=== PATIENT | male | born 1955 | race Caucasian/White ===

== ENCOUNTER → 2017-07-29 07:34 | Outpatient (CLI) | payer OTHER, SELFPAY ==
--- NOTE | 2017-07-29 07:42 | US_ITS ---
US abdomen complete HISTORY: ITS.REASON: PERIUMBILICAL ABD PAIN ORDERING PHYSICIAN: Gomez Garcia MD PATIENT AGE: 61 years COMPARISON: None FINDINGS: PANCREAS:Unremarkable. No obvious mass or abnormal fluid collection. No ductal dilatation LIVER:Fatty liver infiltration. No focal liver lesion or biliary dilatation. There is appropriate direction of blood flow within a nondilated portal vein RIGHT KIDNEY:Unremarkable. Normal size and echogenicity. No hydronephrosis LEFT KIDNEY:Unremarkable. No hydronephrosis. Normal size and echogenicity. GALLBLADDER:No gallstones, gallbladder wall thickening, pericholecystic fluid, or biliary dilatation. AORTA:The aorta is poorly visualized. There may be some minimal dilatation of the mid aspect of the abdominal aorta. CT may better evaluate. SPLEEN:Mild splenomegaly at 14 cm ASCITES:None demonstrated. Ultrasound was obtained of the bulge in the mid abdominal region. There may be an abdominal wall hernia at this area however, this is not adequately demonstrated by ultrasound. Consider abdomen CT for more thorough evaluation IMPRESSION: 1. Fatty liver. 2. Bulging in the mid abdominal region which could be related to abdominal wall hernia. This however is not confirmed by ultrasound and may be better seen. 3. Minimal dilatation of the mid abdominal aorta also not well seen and may also be better demonstrated with CT scan. IMPRESSION:
== END ==
PROVIDERS: PCP Family Medicine; Visit Provider Family Medicine
DX: R10.33 Periumbilical pain (principal)
CPT/HCPCS: 76700

== ENCOUNTER → 2017-08-11 07:34 | Outpatient (CLI) | payer SELFPAY ==
--- NOTE | 2017-08-11 07:36 | CT_ITS ---
CT abdomen pelvis wo con CLINICAL INDICATION: Periumbilical pain, possible abdominal wall hernia. Abnormal ultrasound suggesting small hernia. ITS.REASON: ABD PAIN, ABN ABD US ORDERING PHYSICIAN: Gomez Garcia MD PATIENT AGE: 61 years COMPARISON: Ultrasound of 07/29/[address] scan 09 13 11. TECHNIQUE: Axial images obtained with sagittal and coronal reformats. PROCEDURE: Oral Contrast: None IV Contrast: None . FINDINGS: A lung bases are clear. There is some mild coronary artery calcification. The liver, gallbladder, spleen, adrenal glands, and pancreas are unremarkable. There is infiltration of the central mesenteric fat scattered small mesenteric lymph nodes in this region retroperitoneal adenopathy is also present with nodes in the left para-aortic region measuring up to 4.2 x 2.5 cm. Left para-aortic lymph nodes are present extending to the level of the aortic bifurcation No evidence of appendicitis or diverticulitis. No intestinal obstruction or free air. No pelvic mass. No inguinal adenopathy. There is some minimal stranding of the at and anterior to the left psoas muscle extending into the iliopsoas region of the pelvis. No abdominal wall hernia is evident. No acute bony anomalies. IMPRESSION: 1. Moderate wedge peritoneal adenopathy raising the suspicion of lymphoma or metastatic disease. 2. There is some infiltration of the mesenteric fat centrally with scattered small lymph nodes in the mesentery's. This is nonspecific. Differential diagnosis would include lymphoma, reactive adenopathy, or mesenteric adenitis. Would consider neck and chest CT with contrast to look for other areas of adenopathy and possible safe portal for fine-needle aspiration if clinically desired
== END ==
PROVIDERS: PCP Family Medicine; Visit Provider Family Medicine
DX: R10.33 Periumbilical pain (principal); R93.5 Abnormal findings on diagnostic imaging of other abdominal regions, including retroperitoneum
CPT/HCPCS: 74176

== ENCOUNTER → 2017-10-06 07:33 | Outpatient (CLI) | payer OTHER, SELFPAY ==
[2017-10-06 08:04] LABS: Basophils % 0.4 % (0.1-2.0); Eosinophils # 0.2 K/mm3 (0.0-0.4); Eosinophils % 3.5 % (0.1-12.0); Hematocrit 41.4 % (42.0-52.0); Hemoglobin 13.5 g/dL (14.1-18.0); Lymphocytes # 1.1 K/mm3 (0.7-4.5); Lymphocytes % 21.1 K/mm3 (10-50); Mean Corpuscular HGB Conc 32.6 g/dL (31.8-35.4); Mean Corpuscular Hemoglobin 28.3 pg (27.0-31.2); Mean Corpuscular Volume 86.8 fl (80-94); Mean Platelet Volume 7.4 fl (7.4-10.4); Monocytes # 0.4 K/mm3 (0.1-1.0); Monocytes % 6.7 % (1.7-9.3); Neutrophils # 3.6 K/mm3 (1.8-7.8); Neutrophils % 68.3 % (37.0-80.0); Platelet Count 159 K/mm3 (142-424); Red Blood Count 4.77 M/mm3 (4.60-6.20); Red Cell Distribution Width 13.6 % (11.5-17.5); White Blood Count 5.2 K/mm3 (4.8-10.8)
[2017-10-06 08:10] LABS: Activated Partial Thrombo Time 26.9 seconds (23.6-34.0); INR 1.01 (0.9-1.1); Prothrombin Time 10.9 seconds (9.4-11.8)
[2017-10-06 10:39] LABS: Blood Urea Nitrogen 20 mg/dL (7-18); Creatinine,Serum 0.99 mg/dL (0.70-1.30); Estimated Glomerular Filt Rate 76 ml/min (>60); GFR (African American) 92 ML/MIN (>60)
== END ==
PROVIDERS: Visit Provider Internal Medicine
DX: Z01.818 Encounter for other preprocedural examination (principal)
CPT/HCPCS: 36415; 82565; 84520; 85025; 85610; 85730

== ENCOUNTER → 2017-10-07 12:31 | Outpatient (CLI) | payer OTHER, SELFPAY ==
--- NOTE | 2017-10-07 12:36 | CT_ITS ---
CT biopsy guided needle, CT abdomen wo con HISTORY: ITS.REASON: RETROPERITONEAL NODES ORDERING PHYSICIAN: Jamie Segura MD PATIENT AGE: 62 years COMPARISON: None The abdomen without contrast biopsy CT scan performed to confirm the presence of the retroperitoneal lymph nodes and for biopsy planning.] No adenopathy once again noted with a large successful noted in the left retroperitoneal region measuring 3.3 x 2.7 cm. Small nodes are present also within the central mesenteric axis with a bora mesenteric appearance. TECHNIQUE: Following obtaining informed consent, using aseptic technique and local anesthesia with buffered lidocaine, fine-needle aspiration was performed of the retroperitoneal lymph nodes in the left aspect of the retroperitoneum as previously described. 3 passes were made into the nodule with a 25-gauge needle. Specimen was given to cytology. Specimen was confirmed by cytology on site at the time of the biopsy. The patient tolerated the procedure well without evidence of immediate complications and left the ultrasound suite in stable condition. CYTOLOGY: Suspicious for B-cell lymphoma. Please see cytology report IMPRESSION: Uneventful CT-guided fine-needle aspiration of left retroperitoneal lymph nodes suspicious for lymphoma. Please see cytology report. No immediate complications
== END ==
PROVIDERS: PCP Family Medicine; Visit Provider Internal Medicine
DX: R59.1 Generalized enlarged lymph nodes (principal)
CPT/HCPCS: 10022; 74150; 77012

== ENCOUNTER → 2020-02-23 14:14 | Outpatient (CLI) | payer MEDICARE, MEDICAID, SELFPAY ==
--- NOTE | 2020-02-23 14:29 | XR_ITS ---
PROCEDURE: XR CALCANEUS RT MIN 2V CLINICAL INDICATION: PAIN IN R HEEL COMPARISON: No exams were available for comparison FINDINGS: There is a mildly prominent calcaneal spur which measures 11 mm. No bony erosive change evident. Enthesophyte is noted at the Achilles insertion. There are mild hypertrophic changes of the posterior talar process. Minimal area of sclerosis noted in the aspect of the calcaneus at the junction of the mid and anterior 3rd nonspecific. The joint spaces are well-preserved. No significant degenerative/arthritic changes. No erosive changes evident. Other findings:None. IMPRESSION: Calcaneal spur with nonspecific nonacute findings Dictated by: Rah Ruvalcaba MD 02/23/2020 15:16 Rah Ruvalcaba MD in [place] 02/23/2020 15:16
== END ==
PROVIDERS: PCP Family Medicine; Visit Provider Family Medicine
DX: M79.671 Pain in right foot (principal)
CPT/HCPCS: 73650

== ENCOUNTER → 2020-02-29 09:22 | Outpatient (CLI) | payer MEDICARE, MEDICAID, SELFPAY ==
--- NOTE | 2020-02-29 09:40 | MR_ITS ---
PROCEDURE: MR HEAD/BRAIN WO/W CON CLINICAL INDICATION: INTRACTABLE HEADACHE Pt states he has a place on the back of his head that feels like its burning . also c/o sorness in his rt eye x 2 months. Pt denies injury or trauma. Pt was diagnosed with non hodgkins lymphoma 2 yrs ago and has not had any chemo or radiation. COMPARISON: CT HEADWO CT head/brain wo con from 11/13/2017 TECHNIQUE: Routine multiplanar multi echo sequences are performed without and with gadolinium enhancement. FINDINGS: No midline shift, mass effect, intracranial hemorrhage, or hydrocephalus is evident. The cerebellopontine angles, cerebellum, and brainstem have an unremarkable appearance. No evidence of acute infarction. No enhancing lesions are evident. Unremarkable matter signal intensity. The pituitary, optic chiasm, and corpus callosum and craniocervical junction have an unremarkable appearance. No mastoid effusion. There is mild mucosal thickening of the paranasal sinuses greatest in the right maxillary region. No air-fluid levels are evident. IMPRESSION: Negative MRI of the brain without and with contrast. Mild paranasal sinus disease Dictated by: Rah Ruvalcaba MD 03/02/2020 11:32 Rah Ruvalcaba MD in [place] 03/02/2020 11:32
[2020-02-29 10:02] LABS: Blood Urea Nitrogen 29 mg/dl (9-20); Estimated Glomerular Filt Rate 61 ml/min (>60); GFR (African American) 73 ML/MIN (>60)
== END ==
PROVIDERS: Visit Provider Family Medicine
DX: R51 Headache (principal)
CPT/HCPCS: 36415; 70553; 82565; 84520; A9576

== ENCOUNTER 2022-01-22 00:12 | Emergency (ER) | payer MEDICARE, SELFPAY ==
[2022-01-22 00:14] VITALS: BP 163/85; PULSE 63; RESP 18; TEMP 36.6; O2SAT 98; BMI 37.5
[2022-01-22 00:27] LABS: Coronavirus 19, PCR Not Detected (NotDetected); Influenza A, PCR Not Detected (NotDetected); Influenza B, PCR Not Detected (NotDetected)
[2022-01-22 00:31] VITALS: BP 146/74; PULSE 61; O2SAT 96
--- NOTE | 2022-01-22 00:43 | PC.NURSE ---
at speaking with Pt about POC
--- NOTE | 2022-01-22 00:48 | HMH.EDHA ---
ED Disposition Clinical Impression: Headache Qualifiers: Headache type: unspecified Headache chronicity pattern: acute headache Intractability: not intractable Qualified Code(s): R51.9 - Headache, unspecified Disposition: Home, Self-Care Condition on Discharge: Good Instructions: DI for Headache Additional Instructions: call pcp for follow up Referrals: Gomez Garcia MD [Primary Care Provider] - - Critical Care Critical Care Time: No Attestation: On 01/22/22, the high probability of a clinically significant, sudden or life threatening deterioration of the following system(s) required my full and direct attention, intervention and personal management. The time I documented below is in addition to time spent performing reported procedures but includes the following listed in this critical care notation. Medical Decision Making - Medical Records Medical records reviewed: Yes: I reviewed the patient's medical records. - [place] Inquiry Pt receiving controlled substance: No Vital Signs: 01/22/22 00:14 01/22/22 00:31 01/22/22 01:14 Temperature 98 F Temperature Source Oral Pulse Rate 61 60 Pulse Rate [Left] 63 Respiratory Rate 18 Blood Pressure 146/74 H 178/92 H Blood Pressure [Right Arm] 163/85 H Blood Pressure Mean [Right Arm] 111 02 Sat by Pulse Oximetry 98 96 97 Oxygen Delivery Method Room Air Room Air Room Air - Lab Data Lab results reviewed: Yes: I reviewed the patient's lab results. Lab Results 01/22/22 00:25: SARS-CoV-2 (PCR) Not detected, Influenza A Untype (PCR) Not detected, Influenza Type B (PCR) Not detected 01/22/22 01:01: WBC 6.3, RBC 4.65, Hgb 13.4 L, Hct 42.2, MCV 90.7, MCH 28.9, MCHC 31.8, RDW 14.2, Plt Count 194, MPV 8.2, Neut % (Auto) 67.2, Lymph % (Auto) 19.5, Davison % (Auto) 7.7, Eos % (Auto) 4.8, Baso % (Auto) 0.8, Neut # (Auto) 4.2, Lymph # (Auto) 1.2, Davison # (Auto) 0.5, Eos # (Auto) 0.3, Baso # (Auto) 0.1, ESR 29 H 01/22/22 01:01: Sodium 138, Potassium 3.7, Chloride 103, Carbon Dioxide 26, Anion Gap 12.7, BUN 17, Creatinine 1.10, Estimated Creat Clear 120, Estimated GFR 67, Est GFR ( Amer) 81, Glucose 113 H, Calcium 9.0, Total Bilirubin 0.4, AST 32, ALT 28, Alkaline Phosphatase 107, Total Protein 7.2, Albumin 4.3, Globulin 2.9, Albumin/Globulin Ratio 1.5 Result diagrams: 01/22/22 01:01 01/22/22 01:01 Orders (Tests/Meds): ED MEDICATIONS Generic Name Dose Route Start Last Admin Trade Name Freq PRN Reason Stop Dose Admin Sodium Chloride 1,000 mls @ 999 mls/hr 01/22/22 01:00 01/22/22 01:04 Sod Chlor 0.9% 1000ml Bag IV 01/22/22 02:00 999 mls/hr .[id number] SPIKE Administration Discontinued Medications Generic Name Dose Route Start Last Admin Trade Name Freq PRN Reason Stop Dose Admin Diphenhydramine HCl 25 mg 01/22/22 00:58 01/22/22 01:04 Diphenhydramine 50mg/Ml Vial IV 01/22/22 00:59 25 mg ONCE ONE Administration Ketorolac Tromethamine 30 mg 01/22/22 00:58 01/22/22 01:05 Ketorolac 30mg/Ml Vial IV 01/22/22 00:59 30 mg ONCE ONE Administration Promethazine HCl 25 mg 01/22/22 00:58 01/22/22 01:05 Promethazine Hcl 25mg/Ml 1ml Vial IV 01/22/22 00:59 25 mg ONCE ONE Administration Sodium Chloride 25 ml 01/22/22 00:58 01/22/22 01:06 Sodium Chloride 0.9% 25ml Bag IV 01/22/22 00:59 25 ml ONCE ONE Administration Medical Decision Narrative: stable exam and improved after meds Headache HPI - General Chief Complaint: Headache Stated Complaint: Migraine headache,sweating,nausea Time Seen by Provider: 01/22/22 00:48 Mode of Arrival: Ambulatory Source of Information: Patient, Spouse, Medical Record Limitations: No Limitations Description of Symptoms (Recalled from ER Triage Doc. by RN): PT REPORTS SEVERE HEADACHE , PT STATES HE WOKE UP WITH A VERY BAD HEADACHE AND CHILL THEN WENT TO HOT AGAIN PT STAATES HE HAS NON HODGKINS LYMPHOMA AND HAD A CT SCAN WITH CONTRAST - History of Present Illness HPI Na
--- NOTE | 2022-01-22 00:55 | PC.NURSE ---
Patient to ct scan
--- NOTE | 2022-01-22 00:58 | CT_ITS ---
PROCEDURE INFORMATION: Exam: CT Head Without Contrast Exam date and time: 01/22/2022 1:32 AM Age: 66 years old Clinical indication: Condition or disease; Headache TECHNIQUE: Imaging protocol: Computed tomography of the head without contrast. Radiation optimization: All CT scans at this facility use at least one of these dose optimization techniques: automated exposure control; mA and/or kV adjustment per patient size (includes targeted exams where dose is matched to clinical indication); or iterative reconstruction. COMPARISON: MR HEAD/BRAIN WO/W CON 02/29/2020 10:09 AM FINDINGS: Brain: No hemorrhage. No mass effect. Cerebral ventricles: No ventriculomegaly. Paranasal sinuses: Inflammatory changes in the sinuses without evidence of air-fluid level. Mastoid air cells: Visualized mastoid air cells are well aerated. Bones/joints: No acute fracture. Soft tissues: The visualized soft tissue is grossly unremarkable. IMPRESSION: No evidence of acute intracranial hemorrhage.
[2022-01-22 01:13] LABS: Basophils # 0.1 K/mm3 (0-0.2); Basophils % 0.8 % (0.1-2.0); Eosinophils # 0.3 K/mm3 (0.0-0.4); Eosinophils % 4.8 % (0.1-12.0); Hematocrit 42.2 % (42.0-52.0); Hemoglobin 13.4 g/dL (14.1-18.0); Lymphocytes # 1.2 K/mm3 (0.7-4.5); Lymphocytes % 19.5 % (10-50); Mean Corpuscular HGB Conc 31.8 g/dL (31.8-35.4); Mean Corpuscular Hemoglobin 28.9 pg (27.0-31.2); Mean Corpuscular Volume 90.7 fl (80-94); Mean Platelet Volume 8.2 fl (7.4-10.4); Monocytes # 0.5 K/mm3 (0.1-1.0); Monocytes % 7.7 % (1.7-9.3); Neutrophils # 4.2 K/mm3 (1.8-7.8); Neutrophils % 67.2 % (37.0-80.0); Platelet Count 194 K/mm3 (142-424); Red Blood Count 4.65 M/mm3 (4.60-6.20); Red Cell Distribution Width 14.2 % (11.5-17.5); White Blood Count 6.3 K/mm3 (4.8-10.8)
[2022-01-22 01:14] VITALS: BP 178/92; PULSE 60; O2SAT 97
[2022-01-22 01:22] LABS: Alanine Aminotransferase 28 U/L (12-78); Albumin Level 4.3 g/dl (3.5-5.0); Albumin/Globulin Ratio 1.5 (1.1-1.8); Alkaline Phosphatase 107 U/L (38-126); Anion Gap 12.7 mEq/L (5-15); Aspartate Amino Transferase 32 U/L (17-59); Bilirubin,Total 0.4 mg/dl (0.2-1.3); Blood Urea Nitrogen 17 mg/dl (9-20); Carbon Dioxide 26 mmol/L (22.0-30.0); Chloride 103 mmol/L (98-107); Creatinine Clearance Estimated 120 mL/min (50-200); Estimated Glomerular Filt Rate 67 ml/min (>60); GFR (African American) 81 ML/MIN (>60); Globulin 2.9 g/dL (1.3-3.2); Glucose 113 mg/dl (74-100); Potassium 3.7 mmoL/L (3.5-5.1); Sodium 138 mmol/L (136-145); Total Protein,Serum 7.2 g/dl (6.3-8.2)
[2022-01-22 01:52] LABS: Erythrocyte Sedimentation Rate 29 mm/hr (0-20)
--- NOTE | 2022-01-22 01:56 | PC.NURSE ---
Pt resting with eyes closed. Pt given warm blanket. No other needs voiced.
--- NOTE | 2022-01-22 02:35 | PC.NURSE ---
Updated family. Patient is currently resting in bed.
[2022-01-22 03:21] VITALS: BP 175/92; PULSE 90; RESP 14; TEMP 36.6; O2SAT 99
== END 2022-01-22 03:26 | disposition home or self-care (01) ==
PROVIDERS: Emergency Provider Emergency Medicine; PCP Family Medicine
DX: R51.9 Headache, unspecified (principal); C85.90 Non-Hodgkin lymphoma, unspecified, unspecified site; M19.90 Unspecified osteoarthritis, unspecified site; Z80.9 Family history of malignant neoplasm, unspecified; Z82.49 Family history of ischemic heart disease and other diseases of the circulatory system
CPT/HCPCS: 70450; 80053; 85025; 85651; 96365; 96375; 99284; C9803; U0003; U0005

== ENCOUNTER → 2023-05-07 12:09 | Outpatient (CLI) | payer MEDICARE, SELFPAY ==
--- NOTE | 2023-05-07 12:16 | XR_ITS ---
FINAL REPORT CLINICAL HISTORY: LBP COMPARISON: None FINDINGS: LUMBOSACRAL SPINE SERIES Five views of the lumbosacral spine were obtained. There is no fracture present. There is no malalignment. There is moderate disc space narrowing at L4-5. There is moderate facet sclerosis in the lower lumbar spine. IMPRESSION: Degenerative changes without acute process. Reviewed, Interpreted and Dictated by German Junior MD Transcribed by Sheila Stein Authenticated and [facility]
== END ==
PROVIDERS: PCP Family Medicine; Visit Provider Family Medicine
DX: M54.50 Low back pain, unspecified (principal)
CPT/HCPCS: 72110

== ENCOUNTER 2023-08-19 12:34 | Outpatient (CLI) | payer MEDICARE, SELFPAY ==
--- NOTE | 2023-08-19 12:41 | MR_ITS ---
FINAL REPORT CLINICAL HISTORY: LUMBAGO WITH SCIATICA ON RIGHT SIDE COMPARISON: None FINDINGS: Multiplanar MR imaging of the lumbar spine was performed without contrast. On the sagittal T2-weighted images, disc degeneration is seen at multiple levels. There is mild anterolisthesis of L3 on L4. There is no evidence of fracture. No bony mass is identified. The conus has an unremarkable appearance. T12-L1: An annular bulge is present. There is no significant canal stenosis or neural foraminal narrowing. L1-2: An annular bulge is present. There is no significant canal stenosis or neural foraminal narrowing. L2-3: An annular bulge is present with facet osteoarthropathy. There is mild bilateral neural foraminal narrowing. L3-4: An annular bulge is present with facet osteoarthropathy. There is bilateral lateral recess stenosis as well as a broad-based left protrusion and annular tear. There is moderate canal stenosis with an AP canal diameter of 5 mm. Moderate bilateral neural foraminal narrowing is present. L4-5: An annular bulge is present with facet osteoarthropathy and osteophytes. There is moderate bilateral neural foraminal narrowing. L5-S1: An annular bulge is present with facet osteoarthropathy. There is a left paracentral disc protrusion which contacts the left S1 nerve root, with moderate bilateral neural foraminal narrowing. Mild bilateral sacroiliac joint degenerative changes present. IMPRESSION: Multilevel degenerative disc disease and spondylosis as described, most severe at the L3-4 and L5-S1 levels. Reviewed, Interpreted and Dictated by Pierre Lopez III, MD Transcribed by Amber Noel Authenticated and [facility]
== END 2023-08-19 23:59 ==
LOC: RAD 12:35
PROVIDERS: PCP Family Medicine; Visit Provider Family Medicine
DX: M54.41 Lumbago with sciatica, right side (principal); M54.42 Lumbago with sciatica, left side; R29.898 Other symptoms and signs involving the musculoskeletal system
CPT/HCPCS: 72148; 76376